=== PATIENT | male | born 1970 | race Caucasian/White ===

== ENCOUNTER → 2018-01-11 | Outpatient (CLI) | payer BC ==
[~2018-01-11] MED LIST: FISH OIL PO; LORA1TAB46 PO; MULT-516 PO
== END ==
LOC: STAR 08:23
PROVIDERS: ATTEND Otolaryngology
DX: Z02.9 Encounter for administrative examinations, unspecified (principal)

== ENCOUNTER 2018-01-15 11:04 | Day surgery (SDC) | payer BC ==
[~2018-01-15] VITALS: Ht 175.3 cm; Wt 80.1 kg
[~2018-01-15 11:04] MED LIST changes: +BACITRACIN 50,000 UNIT ONE; +BACITRACIN OINT 500U/GM, 15 GM ONE; +EPINEPHRINE 1 MG/ML, 1ML ONE; +FLUORESCEIN OPHTHALMIC 1 MG STRIP ONE; +LIDOCAINE-MPF 1%, 5ML ONE
[2018-01-15] MEDS ORDERED: LACTATED RINGERS 1,000 ML IV SCH ×2 (11:27→19:30)
[2018-01-15] MEDS ORDERED: OXYcodone IR 5MG TABLET PO ONE (11:30)
[2018-01-15] MEDS ORDERED: ACETAMINOPHEN 500 MG TABLET PO ONE (11:30)
[2018-01-15] MEDS ORDERED: GABAPENTIN 300 MG CAPSULE PO ONE (11:30)
[2018-01-15] MEDS ORDERED: FAMOTIDINE 20 MG TABLET PO ONE (11:30)
[2018-01-15] MEDS ORDERED: SCOPOLAMINE PATCH, 1.5MG PATCH.TD72 TD ONE (11:30)
[2018-01-15 11:42] VITALS: BP 106/71
[2018-01-15] MEDS ORDERED: EPINEPHRINE TOPICAL SOLN 1 MG/ML, 30ML ONE (13:05)
[2018-01-15] MEDS ORDERED: FENTANYL PF 100 MCG/2ML ONE (13:57)
[2018-01-15] MEDS ORDERED: MIDAZOLAM 1 MG/ML, 2ML ONE (13:58)
[2018-01-15] MEDS ORDERED: ROCURONIUM 10 MG/ML,10ML ONE (15:43)
[2018-01-15] MEDS ORDERED: LIDOCAINE-MPF 1%, 5ML INFIL ONE ×2 (16:19→16:20)
[2018-01-15] MEDS ORDERED: DIAZEPAM 5 MG/ML, 2ML IVPush PRN (16:30)
[2018-01-15] MEDS ORDERED: FENTANYL PF 100 MCG/2ML IV PRN (16:30)
[2018-01-15] MEDS ORDERED: MEPERIDINE/PF 25MG/0.5ML IVPush PRN (16:30)
[2018-01-15] MEDS ORDERED: ALBUTEROL SULFATE 2.5 MG/3 ML NPPB PRN (16:30)
[2018-01-15] MEDS ORDERED: ONDANSETRON 2MG/ML, 2ML IVPush PRN (16:30)
[2018-01-15] MEDS ORDERED: hydrALAzine 20 MG/ML, 1ML IV PRN (16:30)
[2018-01-15] MEDS ORDERED: LABETALOL 5MG/ML, 20ML IV PRN (16:30)
[2018-01-15] MEDS ORDERED: HYDROcodone/APAP 7.5-325MG/15ML UDC PO PRN (16:30)
[2018-01-15] MEDS ORDERED: MIDAZOLAM 1 MG/ML, 2ML IV PRN (16:30)
[2018-01-15] MEDS ORDERED: PROMETHAZINE 12.5 MG SUPP PR PRN (16:30)
[2018-01-15] MEDS ORDERED: METOPROLOL 1 MG/ML, 5ML IV PRN (16:30)
[2018-01-15] MEDS ORDERED: morphine SULFATE 10 MG/ML, 1ML IV PRN (16:30)
[2018-01-15] MEDS ORDERED: PROMETHAZINE 25 MG/ML, 1ML IV PRN (16:30)
[2018-01-15] MEDS ORDERED: OXYcodone 5 MG/5 ML ORAL.SOL UDC PO PRN (16:30)
[2018-01-15] MEDS ORDERED: EPHEDRINE 50 MG/ML, 1ML IVPush PRN (16:30)
[2018-01-15] MEDS ORDERED: ONDANSETRON 2MG/ML, 2ML ONE (17:18)
[2018-01-15] MEDS ORDERED: PROPOFOL 10 MG/ML, 20ML ONE (17:18)
[2018-01-15] MEDS ORDERED: CEFAZOLIN 1,000 MG ONE (17:18)
[2018-01-15] MEDS ORDERED: SUCCINYLCHOLINE 20 MG/ML, 10ML ONE (17:18)
[2018-01-15] MEDS ORDERED: DEXAMETHASONE 4 MG/ML, 1ML ONE (17:18)
[2018-01-15] MEDS ORDERED: AMPICILLIN/SULBACTAM 3 GM in SODIUM CHLORIDE 0.9% 100 ML IV ONE (17:30)
[2018-01-15] MEDS ORDERED: AMPICILLIN/SULBACTAM 3 GM IM ONE (17:30)
[2018-01-15] MEDS ORDERED: OXYcodone 5 MG/5 ML ORAL.SOL UDC ONE (18:25)
[2018-01-15 19:00] VITALS: BP 118/85
[2018-01-15] MEDS ORDERED: FISH OIL MC SCH (19:30)
[2018-01-15] MEDS ORDERED: MORPHINE SULFATE 4 MG/ML, 1ML IVPush PRN (19:30)
[2018-01-15] MEDS ORDERED: HYDROcodone/APAP 5/325 TABLET PO PRN (19:30)
[2018-01-16] MEDS ORDERED: MULTIVITAMIN 1 TABLET PO SCH (09:00)
== END 2018-01-15 21:25 | disposition home or self-care (01) ==
LOC: OUT 11:04 → 4NOR 18:55 → OUT 21:25
PROVIDERS: ATTEND Otolaryngology
DX: J32.0 Chronic maxillary sinusitis (principal); J32.1 Chronic frontal sinusitis; J32.2 Chronic ethmoidal sinusitis; J34.2 Deviated nasal septum; J32.9 Chronic sinusitis, unspecified; J33.8 Other polyp of sinus
CPT/HCPCS: 30520; 31255; 31267; 31276; 31288; 36415; 61782; 84460; 86706; 86803; 87340; 87806; 88304; J0171; J0330; J0690; J1100; J2250; J2405; J2704; J3010; J7120; S1090; 88311; G0475